=== PATIENT | female | born 1960 | race Caucasian/White ===

== ENCOUNTER 2021-08-24 05:50 | Emergency (ER) | payer SELFPAY ==
--- NOTE | 2021-08-24 06:00 | NUR ---
Patient went up to registration window and stated "I will just see my PMD instead." Pateint left ER without being triaged or seen by ERMD.
== END 2021-08-24 06:11 | disposition left against medical advice (07) ==
LOC: ER 06:07
DX: Z53.21 Procedure and treatment not carried out due to patient leaving prior to being seen by health care provider (principal)